=== PATIENT | female | born 1960 | race Caucasian/White ===

== ENCOUNTER 2017-09-08 09:27 | Emergency (ER) | payer OTHER ==
[~2017-09-08] VITALS: Ht 152.4 cm; Wt 88.6 kg
[~2017-09-08 09:27] MED LIST: AMOX TR-K CLV1 EAC4; ASPIR 8181 M1; DICLOFENAC SOD100 MG; MEDROL DOSEPAK4 MG PO; TRAMADOL HCL50 MG
[2017-09-08] MEDS ORDERED: MOTRIN800 MG PO (10:45)
[2017-09-08 11:16] VITALS: BP 148/78
== END 2017-09-08 11:16 | disposition home or self-care (01) ==
LOC: EME 09:27
DX: S96.912A Strain of unspecified muscle and tendon at ankle and foot level, left foot, initial encounter (principal); S90.02XA Contusion of left ankle, initial encounter; F17.200 Nicotine dependence, unspecified, uncomplicated; V47.0XXA Car driver injured in collision with fixed or stationary object in nontraffic accident, initial encounter; Y92.410 Unspecified street and highway as the place of occurrence of the external cause; Z79.891 Long term (current) use of opiate analgesic; Z90.49 Acquired absence of other specified parts of digestive tract; Z88.2 Allergy status to sulfonamides
CPT/HCPCS: 73610; 73630; 99281; 99284